=== PATIENT | male | born 1940 | race Caucasian/White ===

== ENCOUNTER → 2017-08-21 | Outpatient (CLI) | payer OTHER ==
[~2017-08-21] MED LIST: AMMONIUM LACTA224 GM TP; ATORVASTATIN CA40 MG PO; CARAFATE1 GM PO; CARVEDILOL25 MG PO; DULCOLAX10 MG PR; FERROUS SULFAT325 MG PO; FLORASTOR250 MG PO; FUROSEMIDE20 MG PO; HYDRALAZINE HCL50 MG PO; LOSARTAN POTAS100 MG PO; METFORMIN HCL1000 MG PO; MILK OF MAGN PO; MULTIVITAMIN1 EAC2 PO; OMEPRAZOLE20 MG PO; POTASSIUM CHLO10 ME3 PO; ROPINIROLE HCL1 MG PO; TUMS500 MG PO
== END ==
LOC: RAD 09:00
DX: R13.12 Dysphagia, oropharyngeal phase (principal); Z86.79 Personal history of other diseases of the circulatory system; Z87.01 Personal history of pneumonia (recurrent); Z87.19 Personal history of other diseases of the digestive system
CPT/HCPCS: 74230; 92611 GN; G8996 GN CI; G8997 GN CI; G8998 GN CI